=== PATIENT | male | born 1940 | race Caucasian/White ===

== ENCOUNTER 2016-10-01 09:59 | Inpatient (IN) | payer OTHER ==
[~2016-10-01] VITALS: Ht 182.9 cm; Wt 104.0 kg
[2016-10-01 12:03] LABS: BASOPHIL % 0.3 % (0-2); PLATELET COUNT 372 x10^3mcL (130-400); RED CELL DISTRIBUTION WIDTH 14.5 % (11.5-14.5)
[2016-10-01 12:19] LABS: CALCIUM 9.4 mg/dL (8.5-10.1); CARBON DIOXIDE 24.3 mmol/L (21-32); CHLORIDE SERUM 104 mmol/L (98-107); CREATININE SERUM 1.6 mg/dL (0.7-1.3); GLUCOSE SERUM 115 mg/dL (74-106); POTASSIUM SERUM 3.8 mmol/L (3.5-5.1); SODIUM SERUM 140 mmol/L (136-145)
[2016-10-01 12:23] LABS: UA SPECIFIC GRAVITY >=1.030 (1.005-1.035); microscopic required? YES; urine erythrocyte 1+ (NEGATIVE)
[2016-10-01 12:37] LABS: ALBUMIN 3.6 g/dL (3.4-5.0); ALKALINE PHOSPHATASE 99 U/L (46-116); ALT/SGPT 40 U/L (16-63); AST/SGOT 27 U/L (15-37); BILIRUBIN TOTAL 1.07 mg/dL (0.20-1.00); TOTAL PROTEIN, SERUM 7.3 g/dL (6.4-8.2)
[2016-10-01] MEDS ORDERED: HYDROCHLOROTHIA25 MG PO (12:56)
[2016-10-01] MEDS ORDERED: VERAPAMIL HCL180 M1 PO (12:56)
[2016-10-01] MEDS ORDERED: LISINOPRIL40 MG PO (12:56)
[2016-10-01] MEDS ORDERED: SIMVASTATIN20 M1 PO (12:56)
[2016-10-01] MEDS ORDERED: ASPIR 8181 MG PO (12:57)
[2016-10-01] MEDS ORDERED: LEVOTHYROXIN0.075 M2 PO (12:57)
[2016-10-01] MEDS ORDERED: LEVOXYL0.05 MG PO (12:57)
[2016-10-01 15:26] LABS: ALBUMIN 3.8 g/dL (3.4-5.0); BILIRUBIN DIRECT 0.27 mg/dL (0.0-0.2); MAGNESIUM 2.2 mg/dL (1.8-2.4); PHOSPHOROUS 3.8 mg/dL (2.5-4.9); TOTAL PROTEIN, SERUM 7.4 g/dL (6.4-8.2)
[2016-10-01 15:30] LABS: T3 TOTAL 0.95 ng/mL
[2016-10-01 15:35] LABS: FREE T4 1.48 ng/dL (0.76-1.46); FREE THYROXINE INDEX 3.5 ug/dL (1.4-4.5); T4(THYROXINE) 9.9 ug/dL (4.7-13.3)
[2016-10-01 15:43] VITALS: BP 136/78
[2016-10-01 21:04] VITALS: BP 136/78
[2016-10-01 21:23] VITALS: BP 135/64
[2016-10-02 05:03] LABS: BASOPHIL % 0.3 % (0-2); PLATELET COUNT 370 x10^3mcL (130-400); RED CELL DISTRIBUTION WIDTH 14.3 % (11.5-14.5)
[2016-10-02 05:20] LABS: CALCIUM 9.4 mg/dL (8.5-10.1); CARBON DIOXIDE 21.9 mmol/L (21-32); CHLORIDE SERUM 108 mmol/L (98-107); CREATININE SERUM 1.4 mg/dL (0.7-1.3); GLUCOSE SERUM 136 mg/dL (74-106); MAGNESIUM 2.3 mg/dL (1.8-2.4); PHOSPHOROUS 3.6 mg/dL (2.5-4.9); POTASSIUM SERUM 4.1 mmol/L (3.5-5.1); SODIUM SERUM 142 mmol/L (136-145)
[2016-10-02 05:46] VITALS: BP 121/55
[2016-10-02 10:00] VITALS: BP 137/78
[2016-10-02 14:47] VITALS: BP 122/60
[2016-10-02 21:55] VITALS: BP 157/69
[2016-10-03 05:46] VITALS: BP 123/60
[2016-10-03 06:21] LABS: BASOPHIL % 0.2 % (0-2); CARBON DIOXIDE 24.4 mmol/L (21-32); CHLORIDE SERUM 107 mmol/L (98-107); CREATININE SERUM 0.8 mg/dL (0.7-1.3); GLUCOSE SERUM 109 mg/dL (74-106); MAGNESIUM 1.9 mg/dL (1.8-2.4); PHOSPHOROUS 3.3 mg/dL (2.5-4.9); PLATELET COUNT 327 x10^3mcL (130-400); POTASSIUM SERUM 3.3 mmol/L (3.5-5.1); RED CELL DISTRIBUTION WIDTH 14.5 % (11.5-14.5); SODIUM SERUM 141 mmol/L (136-145)
[2016-10-03 09:36] VITALS: BP 129/68
[2016-10-03] MEDS ORDERED: APAP/HYDROCODON1 T13 PO (10:25)
[2016-10-03] MEDS ORDERED: LAC30L PO (10:27)
[2016-10-03] MEDS ORDERED: GOOD SENSE OMEP20 MG PO (11:43)
[2016-10-03] MEDS ORDERED: THERA TABS1 TAB PO (11:44)
[2016-10-03 11:54] VITALS: BP 129/68
== END 2016-10-03 12:59 | disposition home or self-care (01) | DRG 180 ==
LOC: ED 09:59 → DU 14:33
PROVIDERS: Emergency Medicine; Family Medicine; Internal Medicine Gastroenterology; ADMIT Family Medicine
PROC: 0DB78ZX Excision of Stomach, Pylorus, Via Natural or Artificial Opening Endoscopic, Diagnostic (ICD-10-PCS; principal; 2016-10-02 08:30)
PROC: 0DJD8ZZ Inspection of Lower Intestinal Tract, Via Natural or Artificial Opening Endoscopic (ICD-10-PCS; 2016-10-02 08:30)
PROC: 0TB03ZX Excision of Right Kidney, Percutaneous Approach, Diagnostic (ICD-10-PCS; 2016-10-02 08:30)
DX: C78.2 Secondary malignant neoplasm of pleura (principal); N17.0 Acute kidney failure with tubular necrosis; K22.10 Ulcer of esophagus without bleeding; I48.91 Unspecified atrial fibrillation; C61 Malignant neoplasm of prostate; E86.0 Dehydration; K29.70 Gastritis, unspecified, without bleeding; K44.9 Diaphragmatic hernia without obstruction or gangrene; E89.0 Postprocedural hypothyroidism; K62.7 Radiation proctitis; K64.8 Other hemorrhoids; R31.9 Hematuria, unspecified; D63.8 Anemia in other chronic diseases classified elsewhere; N28.9 Disorder of kidney and ureter, unspecified; Z68.31 Body mass index [BMI] 31.0-31.9, adult; I25.10 Atherosclerotic heart disease of native coronary artery without angina pectoris
CPT/HCPCS: 36600; 43235; 45378; 50200; 83880; 84439; C1894; C9113; J1200; J1610; J1644; J2001; J2250; J2270; J2310; J2405; J2543; J2765; J3010; J3490; J7030; J7050; J7620; Q0092; Q9967